=== PATIENT | female | born 1935 | race Caucasian/White ===

== ENCOUNTER 2023-04-01 20:32 | Emergency (ER) | payer OTHER ==
[~2023-04-01] VITALS: Ht 175.3 cm; Wt 59.0 kg
[~2023-04-01 20:32] MED LIST: ASA81 PO; ASPI-1155 PO; ATEN-41 PO; ATOR40TA68 PO; CRAN450C PO; FERR-57 PO; GABA-531 PO; GABA-533 PO; GLIP2.5T3 PO; LISI20TA30 PO; NIFE-55 PO; NIFE10CA2 PO
[2023-04-01 20:47] VITALS: BP_SYST 158; PULSE 82; RESP 14; TEMP 97.8; O2SAT 98
--- NOTE | 2023-04-01 20:50 | NUR ---
Patient triaged and placed in ER HALLWAY. VSS and patient appears in no acute distress at this time. Accompanied by BLS, awaiting available bed, and MD notified of need for MSE.
--- NOTE | 2023-04-01 20:57 | NUR ---
Placed in room 04 . Placed on bus driver/monitor, blood pressure machine and pulse oximeter. To gown for exam. Side rails up. Report given to KATIE WOLFF
--- NOTE | 2023-04-01 20:58 | NUR ---
PT BIB AMB FROM HOME WITH C/O OF ABD PAIN X 2 WEEKS WITH NAUSEA AND DIARRHEA. PT STATES SHE HAS NOT BEEN DRINK MUCH WATER. DENIES VOMITING, FEVER, SOB AND CHEST PAIN. A/O X 4, AMBULATORY.
[2023-04-01] MEDS ORDERED: ONDANSETRON HCL 4 MG/2 ML VIAL IVP ONE (21:15)
[2023-04-01] MEDS ORDERED: NACL 0.9% 1,000 ML IV ONE (21:15)
[2023-04-01] MEDS ORDERED: KETOROLAC TROMETHAMINE 30 MG VIAL IVP ONE (21:30)
[2023-04-01 21:53] LABS: BASOPHILS # (AUTO) 0.1 K/uL (0.0-0.2); BASOPHILS % (AUTO) 1.2 % (0.0-2.0); EOSINOPHILS # (AUTO) 0.2 K/uL (0.0-0.4); EOSINOPHILS % (AUTO) 2.7 % (0.0-4.0); HEMATOCRIT 41.9 % (36-48); HEMOGLOBIN 13.7 g/dL (12.0-16.0); LYMPHOCYTES # (AUTO) 1.5 K/uL (1.0-5.5); MEAN CORPUSCULAR HEMOGLOBIN 32 pg (27-31); MEAN CORPUSCULAR HGB CONC 33 % (32-36); MEAN CORPUSCULAR VOLUME 97 fL (79.0-98.0); MONOCYTES # (AUTO) 0.6 K/uL (0.0-1.0); MONOCYTES % (AUTO) 8.9 % (1.7-9.3); NEUTROPHILS # (AUTO) 4.1 K/uL (1.8-7.7); NEUTROPHILS % (AUTO) 64.2 % (40.0-70.0); PLATELET COUNT (AUTO) 205 K/uL (130-430); RED BLOOD CELL COUNT(AUTO) 4.34 MIL/uL (4.2-6.2); RED CELL DISTRIBUTION WIDTH 14.7 % (9.0-15.0); WHITE BLOOD COUNT (AUTO) 6.4 K/uL (4.8-10.8)
[2023-04-01 22:06] LABS: ANION GAP 14 (5-15); CALCIUM 10.3 mg/dL (8.4-11.0); CHLORIDE 104 mmol/L (98-107); CREATININE 2.09 mg/dL (0.55-1.30); GLUCOSE 127 mg/dL (74-106); UREA NITROGEN, BLOOD 29 mg/dL (8-21)
[2023-04-01 22:16] LABS: ALANINE AMINOTRANSFERASE 24 U/L (12-78); ALBUMIN 3.6 g/dL (3.4-4.8); ASPARTATE AMINOTRANSFERASE 21 U/L (10-37); TOTAL BILIRUBIN 1.1 mg/dL (0.0-1.0)
[2023-04-01 22:23] LABS: INR 1.1 (0.8-1.2); PROTHROMBIN TIME 11.6 SECS (9.5-12.5)
--- NOTE | 2023-04-01 23:15 | NUR ---
SWABS SENT TO LAB
--- NOTE | 2023-04-01 23:20 | NUR ---
PT REPORTS FEELING BETTER AFTER THE TORADOL
[2023-04-01] MEDS ORDERED: CLOP75TA32 PO (23:41)
[2023-04-01] MEDS ORDERED: GABA300T25 (23:41)
[2023-04-01] MEDS ORDERED: FURO20TA4 PO (23:41)
[2023-04-01] MEDS ORDERED: NIFE30TA84 PO (23:41)
[2023-04-01] MEDS ORDERED: LOSA100T23 PO (23:41)
[2023-04-01] MEDS ORDERED: GLIP5TAB26 PO (23:41)
[2023-04-01] MEDS ORDERED: ALLO100T PO (23:41)
[2023-04-01] MEDS ORDERED: DAPA5TAB PO (23:41)
--- NOTE | 2023-04-01 23:41 | NUR ---
MED REC DONE
--- NOTE | 2023-04-01 23:50 | NUR ---
PT WAS ABLE TO GET UP AND AMBULATE TO BEDSIDE COMMODE.
--- NOTE | 2023-04-01 23:58 | NUR ---
URINE SENT TO LAB
[2023-04-02 00:18] LABS: BILIRUBIN,URINE NEGATIVE (NEGATIVE); BLOOD, URINE NEGATIVE (NEGATIVE); COLOR,URINE YELLOW (YELLOW); GLUCOSE,URINE TRACE (NEGATIVE); KETONES,URINE NEGATIVE (NEGATIVE); LEUKOCYTE ESTERASE ,URINE 1+ (NEGATIVE); NITRITE, URINE NEGATIVE (NEGATIVE); PROTEIN URINE TRACE (NEGATIVE); UROBILINOGEN,URINE 0.2 (0.2-1.0)
[2023-04-02 00:22] LABS: CLARITY/URINE SLIGHTLY CLOUDY (CLEAR)
[2023-04-02 00:26] LABS: RBC,URINE 0-3 /HPF (0-3); WBC,URINE 80-100 /HPF (0-3)
[2023-04-02 00:27] LABS: BACTERIA,URINE MODERATE /HPF (None Seen)
[2023-04-02] MEDS ORDERED: NACL 0.9% 1,000 ML IV ONE (00:30)
[2023-04-02 02:01] VITALS: TEMP 97.8
--- NOTE | 2023-04-02 03:28 | NUR ---
ULTRASOUND AT BEDSIDE
[2023-04-02 04:07] VITALS: BP_SYST 152; PULSE 64; RESP 16; O2SAT 96
[2023-04-02] MEDS ORDERED: cefTRIAXone 1 GM VIAL IM ONE (04:15)
[2023-04-02] MEDS ORDERED: cefTRIAXone 2 GM VIAL ONE (04:21)
[2023-04-02] MEDS ORDERED: CEPH250C PO (04:22)
[2023-04-02] MEDS ORDERED: METO-290 PO (04:22)
--- NOTE | 2023-04-02 05:48 | NUR ---
Patient given written and verbal discharge instructions and verbalizes understanding. ER MD discussed with patient the results and treatment provided. Patient in stable condition. ID arm band removed. IV catheter removed intact and dressing applied, no active bleeding. Rx of KEFLEX & REGLAN given. Patient educated on pain management and to follow up with PMD. Pain Scale 2/10. Opportunity for questions provided and answered. Medication side effect fact sheet provided.
--- NOTE | 2023-04-02 09:06 | NUR ---
[facility] [place] [facility]SE OF KEFLEX, DR COSTELLO GIVEN INFORMATION AND DOSE OF KEFLEX VERIFIED AT KEFLEX 500MG QID
== END 2023-04-02 05:48 | disposition home or self-care (01) ==
LOC: SED 20:32
DX: N39.0 Urinary tract infection, site not specified (principal); R10.84 Generalized abdominal pain; R53.1 Weakness; E11.9 Type 2 diabetes mellitus without complications; I10 Essential (primary) hypertension; Z88.7 Allergy status to serum and vaccine; Z79.899 Other long term (current) drug therapy; Z20.822 Contact with and (suspected) exposure to COVID-19
CPT/HCPCS: 99285; 74176; 71045; 96375; 96361; 87426; 80053; 81000; 83880; 83690; 85025; 85610; 85730; 87040; 87086; 84484; 36415; 93005; 76376; 83605; 87804 ×2; 96365; 76705; J1885; J2405; J7030; J0696